=== PATIENT | male | born 1975 | race Hispanic/Latino ===

== ENCOUNTER 2018-11-16 10:43 | Emergency (ER) | payer OTHER ==
[2018-11-16] MEDS ORDERED: FLUORESCEIN SODIUM 1 STRIP STRIP ONE (11:05)
[2018-11-16] MEDS ORDERED: TETRACAINE HCL 0.5% 4 ML OPHTH SOLN ONE (11:05)
== END 2018-11-16 11:53 | disposition home or self-care (01) ==
LOC: EEVIPCON 10:43 → EDH 10:43
DX: H10.9 Unspecified conjunctivitis (principal)